=== PATIENT | female | born 1985 | race Caucasian/White ===

== ENCOUNTER 2017-01-20 10:31 | Inpatient (IN) | payer OTHER ==
[2017-01-20] VITALS (17 sets, daily range): BP systolic 91–115; BP diastolic 49–92; PULSE 71–133; RESP 2–20; TEMP 97.6–98; O2SAT 99–100
[2017-01-20] MEDS ORDERED: LACTATED RINGER'S 1000 ML INJ 1,000 ML IV ONE (11:13)
--- NOTE | 2017-01-20 11:18 | HHI.HP ---
HPI Chief Complaint for repeat CS Date Seen: Jan 20, 2017 Time Seen: 11:00 Travel History International Travel<30 Days: No Contact w/Intl Traveler<30Days: No Known Affected Area: No History of Present Illness HPI 31 yo previous CS at 39 weeks for repeat CS Weeks Gestation: 39 Para: 1 : 2 History Past Medical History Medical History: Denies Significant Hx Obstetric History Obstetric History CS x1 Past Surgical History Narrative Surgical none except cs Family History Family History: Negative Social History Alcohol Use: No Tobacco Use: No Substance Abuse: No Allergies-Medications (Allergen,Severity, Reaction): Coded Allergies: No Known Allergies (Unverified , 01/20/17) Review of Systems Except as stated in HPI: all other systems reviewed are Neg Physical Exam Narrative GENERAL: Well-nourished, well-developed patient. SKIN: Warm and dry. HEAD: Normocephalic and atraumatic. EYES: No scleral icterus. No injection or drainage. ENT: No nasal drainage noted. Mucous membranes pink. Airway patent. NECK: Supple, trachea midline. No JVD. CARDIOVASCULAR: Regular rate and rhythm without murmurs, gallops, or rubs. RESPIRATORY: Breath sounds equal bilaterally. No accessory muscle use. BREASTS: Bilateral exam showed no masses , no retractions, no nipple discharge. ABDOMEN/GI: Abdomen soft, non-tender, bowel sounds present, no rebound, no guarding Gravid to [-] weeks size Fundal Height: [-] GENITOURINARY: External Genitalia: intact and normal in appearance BUS glands: [-] Cervix: [-] Dilatation: [-] Effacement: [-] Station: [-] Presentation: [-] Membranes: [intact or ruptured] Uterine Contractions: [-] FHT's: Category: [-] Baseline: [-] Reactive: [-] Variability: [-] Decels: [-] EXTREMITIES: No cyanosis or edema. BACK: Nontender without obvious deformity. No CVA tenderness. NEUROLOGICAL: Awake and alert. Motor and sensory grossly within normal limits. Five out of 5 muscle strength in all muscle groups. Normal speech. Caprini VTE Risk Assessment Caprini VTE Risk Assessment: No/Low Risk (score <= 1) Caprini Risk Assessment Model Point Value = 1 Point Value = 2 Point Value = 3 Point Value = 5 Age 41-60 Minor surgery BMI > 25 kg/m2 Swollen legs Varicose veins or History of unexplained or recurrent spontaneous Oral contraceptives or hormone replacement Sepsis (< 1 month) Serious lung disease, including pneumonia (< 1 month) Abnormal pulmonary function Acute myocardial infarction Congestive heart failure (< 1 month) History of inflammatory bowel disease Medical patient at bed rest Age 61-74 Arthroscopic surgery Major open surgery (> 45 min) Laparoscopic surgery (> 45 min) Malignancy Confined to bed (> 72 hours) Immobilizing plaster cast Central venous access Age >= 75 History of VTE Family history of VTE Factor V Leiden Prothrombin [id number] Lupus anticoagulant Anticardiolipin antibodies Elevated serum homocysteine Heparin-induced thrombocytopenia Other congenital or acquired thrombophilia Stroke (< 1 month) Elective arthroplasty Hip, pelvis, or leg fracture Acute spinal cord injury (< 1 month) Prophylaxis Regimen Total Risk Factor Score Risk Level Prophylaxis Regimen 0-1 Low Early ambulation 2 Moderate Order ONE of the following: *Sequential Compression Device (SCD) *Heparin 5000 units SQ BID 3-4 Higher Order ONE of the following medications: *Heparin 5000 units SQ TID *Enoxaparin/Lovenox 40 mg SQ daily (WT < 150 kg, CrCl > 30 mL/min) *Enoxaparin/Lovenox 30 mg SQ daily (WT < 150 kg, CrCl > 10-29 mL/min) *Enoxaparin/Lovenox 30 mg SQ BID (WT < 150 kg, CrCl > 30 mL/min) AND/OR *Sequential Compression Device (SCD) 5 or more Highest Order ONE of the following medications: *Heparin 5000 units SQ TID (Preferred with Epidurals) *Enoxaparin/Lovenox 40 mg SQ daily (WT < 150 kg, CrCl > 30 mL/min) *Enoxaparin/Lovenox 30 mg SQ daily (WT < 150 kg, CrCl > 10-29 mL/min) *Enoxaparin/Lovenox 30 mg SQ BID (WT < 150 kg, CrCl > 30 mL/min) AND *Sequential Compression Device (SCD) Data Data Vital Signs Reviewed: Yes Orders Orders Admit To Inpatient (01/20/17 ) Code Status (01/20/17 11:13) Vital Signs (Adult) .ON ADMISSION (01/20/17 11:13) Activity Oob Ad Mickie (01/20/17 11:13) Heart (01/20/17 11:13) Urinary Catheter Management MARGE.Q8H (01/20/17 11:13) ^ Preps (01/20/17 11:13) Scd / Dale / Foot Pump MARGE.QSHIFT (01/20/17 11:13) ^ Ultrasound For Locatio (01/20/17 11:13) Diet Npo (01/20/17 Lunch) Lactated Ringer's 1000 Ml Inj (Lr 1000 M (01/20/17 11:13) Lactated Ringer's 1000 Ml Inj (Lr 1000 M (01/20/17 11:43) Cefazolin 2 Gm Premix (Ancef 2 Gm Premix (01/20/17 12:15) Citric Acid-Sodium Citrate Liq (Bicitra (01/20/17 12:45) Type And Screen (01/20/17 11:13) Complete Blood Count With Diff (01/20/17 11:13) Urinalysis - C+S If Indicated (01/20/17 11:13) Drug Screen, Random Urine (01/20/17 11:13) Inpatient Certification (01/20/17 ) Specimen To Be Collected PRN (01/20/17 11:13) Specimen To Be Collected PRN (01/20/17 11:13) Assessment/Plan Problem List: (1) 39 weeks gestation of ICD Codes: Z3A.39 - 39 weeks gestation of Assessment and Plan 39 weeks for CS Evaristo Lindsay MD Jan 20, 2017 11:18
[2017-01-20] MEDS ORDERED: LACTATED RINGER'S 1000 ML INJ 1,000 ML IV SCH (11:43)
[2017-01-20] MEDS ORDERED: ceFAZolin 2 GM PREMIX 50 ML IV SCH (12:15)
[2017-01-20 12:20] LABS: AUTOMATED NEUTROPHIL # 7.1 TH/MM3 (1.8-7.7); BASOPHIL % 0.4 % (0.0-2.0); EOSINOPHIL % 0.3 % (0.0-4.0); HEMATOCRIT 32.6 % (35.0-46.0); HEMO FLAGS DIFF FINAL; LYMPHOCYTE # 2.2 TH/MM3 (1.0-4.8); MEAN CELL VOLUME 80.9 FL (80.0-100.0); MEAN CORPUSCULAR HEMOGLOBIN 27.4 PG (27.0-34.0); MEAN CORPUSCULAR HGB CONC 33.8 % (32.0-36.0); MONO % 6.3 % (0.0-8.0); PLATELET COUNT 196 TH/MM3 (150-450); RED BLOOD COUNT 4.03 MIL/MM3 (4.00-5.30); RED CELL DISTRIBUTION WIDTH 15.1 % (11.6-17.2)
[2017-01-20] MEDS ORDERED: ACETAMINOPHEN 1000 MG/100 ML 100 ML IV ONE (12:28)
[2017-01-20] MEDS ORDERED: CITRIC ACID-SODIUM CITRATE LIQ 30 ML UDC PO SCH (12:45)
[2017-01-20 13:09] LABS: BACTERIA, URINE MOD /hpf; BLOOD, URINE TRACE (NEG); COMMENT (UR) CULTURE INDICATED; CULTURE IF INDICATED CULTURE INDICATED; GLUCOSE,URINE NEG (NEG); KETONE, URINE 40 mg/dL (NEG); MUCUS URINE FEW /lpf (OCC); NITRITE,URINE NEG (NEG); PH, URINE 6.5 (5.0-8.5); SQUAMOUS EPITHELIAL CELL URINE 19 /hpf (0-5); URINE COLOR YELLOW (YELLW/STRAW)
[2017-01-20] MEDS ORDERED: MORPHINE SULFATE PF 5 MG/10 ML VIAL ONE (14:25)
--- NOTE | 2017-01-20 15:40 | PD.OB.DELI ---
Procedure Note Section Procedure Pre Op Diagnosis: (1) 39 weeks gestation of Post Op Diagnosis: (1) Gestational diabetes mellitus (GDM) affecting second (2) 39 weeks gestation of Performed by Evaristo Lindsay Procedure: Repeat Low Transverse Sec Indication for delivery: Desired elective repeat Previous condition: None Informed consent obtained: For anesthesia, For procedure Confirmed correct: Patient, Procedure, Site, Time-out taken Anesthesia: Epidural Monitoring during procedure: Blood pressure monitoring Urinary catheter: Inserted using sterile technique, To dependent drainage Sterile preparation: Duraprep Position: Supine with wedge to left side Operative Features Skin Incision: Pfannenstiel Uterine Incision: Low transverse w/knife / blunt ext Membranes Ruptured: Artificially Presentation: Occiput anterior Delivery date: Jan 20, 2017 Delivery time: 15:06 Infant: Male, Single One Minute : 7 Five Minute : 9 Weight: 11# 1 oz Status of : Viable Placenta delivered: Intact Medications: Antibiotics Estimated blood loss: 500 Procedure tolerated: Well Maternal Condition: Stable Condition: Stable Evaristo Lindsay MD Jan 20, 2017 15:40
[2017-01-20] MEDS ORDERED: KETOROLAC TROMETHAMINE 60 MG/2 ML (IM) VIAL IM PRN (15:45)
[2017-01-20] MEDS ORDERED: SODIUM CHLORIDE 0.9% FLUSH 10 ML FLUSH IV FLUSH PRN (15:45)
[2017-01-20] MEDS ORDERED: SIMETHICONE 80 MG CHEWABLE TAB PO PRN (15:45)
[2017-01-20] MEDS ORDERED: OXYTOCIN 30 UNITS-500ML PREMIX 500 ML IV ONE (15:45)
[2017-01-20] MEDS ORDERED: OXYTOCIN 30 UNITS-500ML PREMIX 500 ML ONE (16:41)
[2017-01-20] MEDS ORDERED: EPIDURAL-DO NOT ADMINISTER ANTICOAGULANTS PRN (18:15)
[2017-01-20] MEDS ORDERED: EPIDURAL-NO SYSTEMIC NARCOTICS PRN (18:15)
[2017-01-20] MEDS ORDERED: EPIDURAL-DIPHENHYDRAMINE HCL 50 MG CAP PO PRN (18:15)
[2017-01-20] MEDS ORDERED: EPIDURAL-DIPHENHYDRAMINE HCL 50 MG/ML VIAL IV PUSH PRN (18:15)
[2017-01-20] MEDS ORDERED: EPIDURAL-NALOXONE HCL 0.4 MG/ML AMP IV PUSH PRN (18:15)
[2017-01-20] MEDS: LACTATED RINGER'S 1000 ML INJ 1,000 ML IV SCH (19:53)
[2017-01-20] MEDS ORDERED: SODIUM CHLORIDE 0.9% FLUSH 10 ML FLUSH IV FLUSH SCH (21:00)
[2017-01-20] MEDS ORDERED: ONDANSETRON HCL 4 MG/2 ML VIAL IV PUSH PRN (21:45)
--- NOTE | 2017-01-20 22:14 | MP ---
cc: COLT LINDSAY DATE OF SURGERY 01/20/17 PROCEDURE Repeat low transverse section. PREOPERATIVE DIAGNOSIS Gestational diabetes, macrosomia and polyhydramnios along with previous section. POSTOPERATIVE DIAGNOSIS Gestational diabetes, macrosomia and polyhydramnios along with previous section. SURGEON Dr. Analy Lindsay ESTIMATED BLOOD LOSS 500 mL COMPLICATIONS None FINDINGS Live male , Apgars of 7 and 9, weight 11 pounds 1 ounce ANESTHESIA Spinal, Dr. Oscar PROCEDURE IN DETAIL After informed consent, the patient was taken to the operating room where she was placed under spinal anesthesia placed supine position left lateral tilt. Vagina prepped, draped in normal sterile fashion. Winston catheter was placed to gravity. Once the patient was prepped and draped and time-out was taken, the patient identifiers were used along with procedure. The patient agreed in that she was awake, with the procedure everyone in the OR agreed, procedure that was performed low-transverse section Pfannenstiel skin incision was carried sharply to the skin of the fascia. Fascia was nicked in midline. Incision was extended laterally using Gray scissors secondary scar tissue, rectus muscle in the midline. Peritoneum was entered bluntly with finger. The incision was extended laterally using blunt traction. Uterus noted to be midline. A bladder flap was created by dissecting the bladder off the lower uterine segment. A low-transverse uterine incision was then made, carried sharply to the uterine cavity. Clear fluid was noted. The incision was extended laterally using blunt traction. Hand was placed in the uterus. The 's head was guided through the incision. A lot of fluid came out. Using fundal pressure the rest of fluid came out. The 's head was brought through the incision. Using fundal pressure, the infant's head readily delivered. Nose and mouth suctioned well. was delivered remaining portion away. Cord was clamped and cut. In that the baby did not start breathing no 45-second delay could be performed. Once we delivered the baby, it was handed to pediatrics in attendance and cord blood was collected. The patient requested that cord blood sampling be collected for storage. That was done in sterile fashion. The placenta was then delivered manually. Uterus exteriorized, wiped free from all remaining products of conception. The uterine incision was then closed with a running locking stitch of chromic suture. Good hemostasis was achieved. The left uterine artery had to be tied off secondary to rupture and hematomas were forming. Good hemostasis was achieved. The hematoma was stable. The uterus was placed back in the abdomen noted be hemostatic. The peritoneum was closed with chromic suture. The fascia was closed with Vicryl suture. Skin was closed with subcuticular stitch. Each layer was noted to be hemostatic prior to closure. The patient tolerated procedure well. All instruments counts were reported as correct. The infant went to nursery. Mother went to recovery room. MD GEORGE Andrade/ /3:37 PM /9:57 PM
[2017-01-21 00:45] VITALS: BP 95/69; PULSE 92; RESP 18; TEMP 98.2; O2SAT 98
[2017-01-21] MEDS ORDERED: OXYTOCIN 30 UNITS-500ML PREMIX 500 ML IV PRN (01:45)
[2017-01-21 05:56] LABS: AUTOMATED NEUTROPHIL # 8.9 TH/MM3 (1.8-7.7); BASOPHIL % 0.2 % (0.0-2.0); EOSINOPHIL % 0.3 % (0.0-4.0); HEMATOCRIT 23.8 % (35.0-46.0); HEMO FLAGS DIFF FINAL; LYMPH % 16.1 % (9.0-44.0); LYMPHOCYTE # 1.9 TH/MM3 (1.0-4.8); MEAN CELL VOLUME 81.4 FL (80.0-100.0); MEAN CORPUSCULAR HEMOGLOBIN 27.6 PG (27.0-34.0); MEAN CORPUSCULAR HGB CONC 33.9 % (32.0-36.0); MONO % 6.3 % (0.0-8.0); NEUT % 77.1 % (16.0-70.0); PLATELET COUNT 131 TH/MM3 (150-450); RED BLOOD COUNT 2.92 MIL/MM3 (4.00-5.30); RED CELL DISTRIBUTION WIDTH 14.8 % (11.6-17.2); WHITE BLOOD COUNT 11.6 TH/MM3 (4.0-11.0)
[2017-01-21] MEDS: IBUPROFEN 600 MG TAB PO PRN ×3 (05:59→18:50)
[2017-01-21 06:00] VITALS: BP 117/75; PULSE 114; RESP 20; TEMP 98.1
[2017-01-21] MEDS: LACTATED RINGER'S 1000 ML INJ 1,000 ML IV SCH (06:00)
--- NOTE | 2017-01-21 08:57 | HHI.OB ---
Subjective Post Day: 1 Remarks doing well Objective Vitals/I&O Vital Signs Date Time Temp Pulse Resp B/P (MAP) Pulse Ox O2 Delivery O2 Flow Rate FiO2 01/21/17 06:00 98.1 114 20 117/75 (89) 01/21/17 00:45 98.2 92 18 95/69 (78) 98 01/20/17 21:00 2 01/20/17 20:30 97.7 80 17 98/60 (73) 99 01/20/17 19:45 18 01/20/17 18:35 97.6 76 18 109/65 (80) 01/20/17 17:20 97.8 01/20/17 17:15 112/55 (74) 01/20/17 17:09 79 17 99 01/20/17 17:05 75 18 114/50 (71) 99 01/20/17 16:47 78 20 101/55 (70) 100 01/20/17 16:23 100 01/20/17 16:22 81 18 91/49 (63) 01/20/17 16:20 100 01/20/17 16:09 79 18 01/20/17 16:09 112/51 (71) 01/20/17 16:05 100 01/20/17 16:00 71 115/53 (73) 01/20/17 16:00 98.0 18 01/20/17 11:30 18 01/20/17 11:30 97.8 01/20/17 11:25 133 115/92 (100) Objective Remarks GENERAL: Well-nourished, well-developed patient. ABDOMEN/GI: Abdomen soft, non-tender. Fundus: Firm, non-tender at umbilicus. GENITOURINARY: Light to moderate bleeding. EXTREMITIES: No cyanosis or edema, non-tender, without signs of DVT. Medications and IVs Current Medications Medications (Trade) Dose Ordered Sig/Irvin Route Start Time Stop Time Status Last Admin Lactated Ringer's 1,000 ml @ 100 mls/hr Q10H IV 01/20/17 20:33 01/21/17 16:32 01/21/17 06:00 Oxytocin 500 ml @ 100 mls/hr UNSCH X1 PRN IV 01/21/17 01:45 01/22/17 01:44 (NS Flush) 2 ml BID IV FLUSH 01/20/17 21:00 (NS Flush) 2 ml UNSCH PRN IV FLUSH 01/20/17 15:45 (Mylicon Chew) 80 mg QID PRN PO 01/20/17 15:45 (Motrin) 600 mg Q6H PRN PO 01/20/17 15:45 01/21/17 05:59 (Toradol Inj) 30 mg Q6H PRN IM 01/20/17 15:45 01/21/17 15:44 (Percocet 5-325 Mg) 1 tab Q4H PRN PO 01/20/17 15:45 (Percocet 5-325 Mg) 2 tab Q4H PRN PO 01/20/17 15:45 (M-M-R Ii Inj) 0.5 ml ONCE ONCE SQ 01/21/17 16:00 01/21/17 16:01 (Boostrix Inj) 0.5 ml ONCE ONCE IM 01/21/17 16:00 01/21/17 16:01 Miscellaneous Information NO SYSTEMIC NARCOTICS TO BE GIVEN FO... UNSCH PRN .XX 01/20/17 18:15 01/21/17 18:14 (Narcan Inj) 0.4 mg UNSCH PRN IV PUSH 01/20/17 18:15 01/21/17 18:14 (Benadryl Inj) 25 mg Q6H PRN IV PUSH 01/20/17 18:15 01/21/17 18:14 (Benadryl) 50 mg Q6H PRN PO 01/20/17 18:15 01/21/17 18:14 Miscellaneous Information ALL NURSING DEPARTMENTS UNSCH PRN .XX 01/20/17 18:15 01/21/17 18:14 (Zofran Inj) 4 mg Q6H PRN IV PUSH 01/20/17 21:45 01/20/17 22:16 Assessment/Plan Problem List: (1) 39 weeks gestation of ICD Codes: Z3A.39 - 39 weeks gestation of Assessment and Plan CS on 01/20 Evaristo Lindsay MD Jan 21, 2017 08:57
[2017-01-21 09:30] VITALS: BP 83/54; PULSE 92; RESP 18; TEMP 98.1; O2SAT 97
[2017-01-21] MEDS ORDERED: DIPHTH/TETANUS/ACEL PERTUSSIS (BOOSTER) 0.5 ML VIAL/PFS IM ONE (16:00)
[2017-01-21] MEDS ORDERED: MEASLES, MUMPS, RUBELLA VACCINE 0.5 ML VIAL SQ ONE (16:00)
[2017-01-21] MEDS: oxyCODONE/ACETAMINOPHEN 5 MG/325 MG TAB PO PRN (18:51)
[2017-01-21 19:50] VITALS: BP 104/67; PULSE 90; RESP 18; TEMP 97.9
[2017-01-22] MEDS: oxyCODONE/ACETAMINOPHEN 5 MG/325 MG TAB PO PRN ×4 (00:42→20:41)
[2017-01-22] MEDS: IBUPROFEN 600 MG TAB PO PRN ×4 (00:42→20:42)
--- NOTE | 2017-01-22 07:38 | HHI.OB ---
Subjective Post Day: 2 Remarks doing well post op went to NICU Objective Vitals/I&O Vital Signs Date Time Temp Pulse Resp B/P (MAP) Pulse Ox O2 Delivery O2 Flow Rate FiO2 01/21/17 19:50 97.9 90 18 104/67 (79) 01/21/17 09:30 98.1 92 18 83/54 (64) 97 Objective Remarks GENERAL: Well-nourished, well-developed patient. ABDOMEN/GI: Abdomen soft, non-tender. Fundus: Firm, non-tender at umbilicus. GENITOURINARY: Light to moderate bleeding. EXTREMITIES: No cyanosis or edema, non-tender, without signs of DVT. Medications and IVs Current Medications Medications (Trade) Dose Ordered Sig/Irvin Route Start Time Stop Time Status Last Admin (NS Flush) 2 ml BID IV FLUSH 01/20/17 21:00 (NS Flush) 2 ml UNSCH PRN IV FLUSH 01/20/17 15:45 (Mylicon Chew) 80 mg QID PRN PO 01/20/17 15:45 (Motrin) 600 mg Q6H PRN PO 01/20/17 15:45 01/22/17 00:42 (Percocet 5-325 Mg) 1 tab Q4H PRN PO 01/20/17 15:45 01/21/17 18:51 (Percocet 5-325 Mg) 2 tab Q4H PRN PO 01/20/17 15:45 01/22/17 00:42 (Zofran Inj) 4 mg Q6H PRN IV PUSH 01/20/17 21:45 01/20/17 22:16 Assessment/Plan Problem List: (1) 39 weeks gestation of ICD Codes: Z3A.39 - 39 weeks gestation of Assessment and Plan LTCS doing well Discharge Planning in AM Evaristo Lindsay MD Jan 22, 2017 07:38
[2017-01-22 08:00] VITALS: BP 128/78; PULSE 99; RESP 18; TEMP 98.1; O2SAT 100
[2017-01-22] MEDS ORDERED: DOCUSATE SODIUM 100 MG CAP PO SCH (09:00)
[2017-01-22 20:17] VITALS: BP 119/69; PULSE 101; RESP 16; TEMP 98.2
--- NOTE | 2017-01-23 01:59 | HHI.DCPOC ---
Discharge Care Plan Diagnosis: (1) delivery delivered Report Symptoms to Your Doctor -Temperature above 100.5 degrees -Redness, of incision or excessive or foul smelling drainage -Unusual pain or calf pain -Increased vaginal bleeding -Painful or difficulty urinating -Feelings of extreme sadness or anxiety after 2 weeks Goals to Promote Your Health * To prevent worsening of your condition and complications * To maintain your health at the optimal level Directions to Meet Your Goals Take your medications as prescribed Follow your dietary instruction Follow activity as directed Ensure plenty of rest for recovery Drink fluids for hydration Keep your appointments as scheduled Take your immunizations and boosters as scheduled If your symptoms worsen call your PCP, if no PCP go to Urgent Care Center or Emergency Room Smoking is Dangerous to Your Health. Avoid second hand smoke Call the 24-hour crisis hotline for domestic abuse at Evaristo Lindsay MD Jan 23, 2017 01:59
[2017-01-23] MEDS: IBUPROFEN 600 MG TAB PO PRN ×2 (03:33→13:36)
[2017-01-23] MEDS: oxyCODONE/ACETAMINOPHEN 5 MG/325 MG TAB PO PRN ×3 (03:33→13:36)
--- NOTE | 2017-01-23 07:41 | HHI.OB ---
Subjective Post Day: 3 Remarks doing well ready for DC home Objective Vitals/I&O Vital Signs Date Time Temp Pulse Resp B/P (MAP) Pulse Ox O2 Delivery O2 Flow Rate FiO2 01/22/17 20:17 98.2 101 16 119/69 (86) 01/22/17 08:00 100 01/22/17 08:00 98.1 99 18 128/78 (95) Objective Remarks GENERAL: Well-nourished, well-developed patient. ABDOMEN/GI: Abdomen soft, non-tender. Fundus: Firm, non-tender at umbilicus. GENITOURINARY: Light to moderate bleeding. EXTREMITIES: No cyanosis or edema, non-tender, without signs of DVT. Medications and IVs Current Medications Medications (Trade) Dose Ordered Sig/Irvin Route Start Time Stop Time Status Last Admin (NS Flush) 2 ml BID IV FLUSH 01/20/17 21:00 (NS Flush) 2 ml UNSCH PRN IV FLUSH 01/20/17 15:45 (Mylicon Chew) 80 mg QID PRN PO 01/20/17 15:45 (Motrin) 600 mg Q6H PRN PO 01/20/17 15:45 01/23/17 03:33 (Percocet 5-325 Mg) 1 tab Q4H PRN PO 01/20/17 15:45 01/23/17 03:33 (Percocet 5-325 Mg) 2 tab Q4H PRN PO 01/20/17 15:45 01/22/17 00:42 (Zofran Inj) 4 mg Q6H PRN IV PUSH 01/20/17 21:45 01/20/17 22:16 (Colace) 100 mg BID PO 01/22/17 09:00 01/22/17 20:41 Assessment/Plan Problem List: (1) 39 weeks gestation of ICD Codes: Z3A.39 - 39 weeks gestation of Assessment and Plan LTCS doing well Discharge Planning today Evaristo Lindsay MD Jan 23, 2017 07:41
[2017-01-23] MEDS ORDERED: OXYC1TAB63 PO (07:43)
--- NOTE | 2017-01-23 07:44 | HHI.DS ---
Admission Date Jan 20, 2017 at 10:31 Discharge Date: Jan 23, 2017 Admitting Diagnosis Diagnosis: (1) delivery delivered ICD Codes: O82 - Encounter for delivery without indication Delivery Date: Jan 20, 2017 : Repeat : Male, Single Brief History 31 yo previous CS at 39 weeks for repeat CS Hospital Course LTCS doing well. dc home Pt Condition on Discharge: Good Discharge Disposition: Discharge Home Discharge Instructions Diet Instructions: As Tolerated, No Restrictions Activities You Can Perform: Pelvic Rest Activities to Avoid: Driving for 24 hrs Follow up Referrals: [facility] - 2 Weeks @ [facility] with Evaristo Lindsay MD New Medications: Oxycodone HCl/Acetaminophen (Oxycodone-Acetaminophen 5-325) 5 Mg-325 Mg Tablet 2 TAB PO Q4H PRN for PAIN SCALE 6 TO 10 for 30 Days, #360 TAB 0 Refills Evaristo Lindsay MD Jan 23, 2017 07:44
== END 2017-01-23 17:00 | disposition home or self-care (01) | DRG 774 ==
LOC: H2EB 10:31 → H1EA 17:45
PROVIDERS: ADMIT Obstetrics & Gynecology; ATTEND Obstetrics & Gynecology
PROC: 0W3J0ZZ Control Bleeding in Pelvic Cavity, Open Approach (ICD-10-PCS; principal; 2017-01-20)
DX: O34.211 Maternal care for low transverse scar from previous cesarean delivery (principal); O67.8 Other intrapartum hemorrhage; Z37.0 Single live birth; O40.3XX0 Polyhydramnios, third trimester, not applicable or unspecified; O24.429 Gestational diabetes mellitus in childbirth, unspecified control; O36.63X0 Maternal care for excessive fetal growth, third trimester, not applicable or unspecified; Z3A.39 39 weeks gestation of pregnancy
CPT/HCPCS: 59025; 80307; 81001; 85025; 86850; 86900; 86901; 87086; 90715; J0131; J2274; J2405; J2590; J7120